=== PATIENT | male | born 1975 | race Caucasian/White ===

== ENCOUNTER 2017-12-16 20:40 | Inpatient (IN) | payer OTHER ==
[2017-12-16] MEDS ORDERED: ONDANSETRON HCL INJ/PF 4 MG/2 ML SDV IV ONE (21:27)
[2017-12-16] MEDS ORDERED: KETOROLAC TROMETHAMINE INJ/PF 30 MG/1 ML SDV IV ONE (21:27)
[2017-12-16] MEDS ORDERED: RINGERS SOLUTION,LACTATED 2,000 ML IV ONE (21:27)
[2017-12-16] MEDS ORDERED: CEFEPIME 2 GM/D5W RTU 2 GM/50 ML RTUPB IV ONE (21:29)
[2017-12-16] MEDS ORDERED: VANCOMYCIN HCL INJ 1000 MG VIAL IV ONE (21:30)
[2017-12-16] MEDS ORDERED: ACETAMINOPHEN 325 MG TABLET PO ONE (21:30)
--- NOTE | 2017-12-16 21:30 | ER Document Report ---
ED General - General Chief Complaint: Shortness Of Breath Stated Complaint: PAIN ALL OVER Time Seen by Provider: 12/16/17 20:59 Cannot obtain history due to: Unstable vital signs Notes: Patient is a 42-year-old male without chronic medical problems although does have a history of both benzodiazepine and opiate dependence who presents from [place] with concerns of fever, vomiting, diarrhea, hypoxia. The patient has apparently been ill for the past 2 days and states that his symptoms have been getting progressively worse. He describes diffuse body pain as a dull, throbbing, aching pain throughout. Nothing improves or worsens his symptoms. 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 He has been on Librium as he had previously been Xanax dependent and denies having any significant benzodiazepine withdrawal symptoms. He does report a cough with production of sputum. Notes that he has a persistent shortness of breath which is worsened by any attempt exertion. Nothing has improved his symptoms. He denies any history of similar symptoms in the past. History is otherwise limited secondary to the acute nature of this patient's presentation. TRAVEL OUTSIDE OF THE [place] IN LAST 30 DAYS: No - Related Data Allergies/Adverse Reactions: rubella and mumps live virus vaccin [Rubella And Mumps Vaccine] Allergy (Unknown , Verified 04/07/11 02:02) tramadol [Tramadol] Allergy (Unknown, Verified 04/07/11 02:01) Past Medical History - General Information source: Patient - Social History Smoking Status: Current Every Day Smoker Frequency of alcohol use: Heavy Drug Abuse: Marijuana, Other Lives with: Other - Half-Way Family History: Reviewed & Not Pertinent Patient has suicidal ideation: No Patient has homicidal ideation: No Renal/ Medical History: Denies: Hx Peritoneal Dialysis Past Surgical History: Reports: Hx Orthopedic Surgery - two wrist surgeries - Immunizations Hx Diphtheria, Pertussis, Tetanus Vaccination: Yes - 6-7yrs ago Review of Systems - Review of Systems Notes: Constitutional: Positive for fever. HENT: Negative for sore throat. Eyes: Negative for visual changes. Cardiovascular: Negative for chest pain. Respiratory: Positive for shortness of breath. Gastrointestinal: Negative for abdominal pain, positive for vomiting and diarrhea Genitourinary: Negative for dysuria. Musculoskeletal: Positive for diffuse pain Skin: Negative for rash. Neurological: Negative for headaches, weakness or numbness. 10 point ROS negative except as marked above and in HPI. Physical Exam - Vital signs Vitals: Temp Pulse Resp BP Pulse Ox 102.4 F H 140 H 22 H 110/70 92 12/16/17 20:46 12/16/17 20:46 12/16/17 20:46 12/16/17 20:46 12/16/17 20:46 Interpretation: Tachycardic, Hypoxic, Tachypneic, Febrile Notes: PHYSICAL EXAMINATION: GENERAL: Ill in appearance, hyperventilating, appears quite uncomfortable HEAD: Atraumatic, normocephalic. EYES: Pupils equal round and reactive to light, extraocular movements intact, sclera anicteric, conjunctiva are normal. ENT: nares patent, oropharynx clear without exudates. Extremely dry mucous membranes. NECK: Normal range of motion, supple without lymphadenopathy LUNGS: Substantially diminished breath sounds at the right base and right middle lobe. Moderate tachypnea without respiratory distress. HEART: Regular tachycardia without murmurs ABDOMEN: Soft, nontender, normoactive bowel sounds. No guarding, no rebound. No masses appreciated. EXTREMITIES: Normal range of motion, no pitting or edema. No cyanosis. NEUROLOGICAL: No focal neurological deficits. Moves all extremities spontaneously and on command. PSYCH: Moderately anxious SKIN: Warm, Dry, normal turgor, scabbed lesions over the bilateral forearms and bilateral lower extremities Course - Re-evaluation Re-evalutation: 12/16/17 21:28 Patient presents with fever, nausea, vomiting, diarrhea, shortness of breath, diffuse body aches. He is a known IV drug user. The patient is ill in appearance at time of my assessment, moderately tachypneic breathing approximately 26 times per minute, saturating 92% on room air and febrile at 102.4F. He is tachycardic with heart rate of 140. He does meet sepsis criteria. Immediately upon evaluation of this patient a full sepsis protocol was initiated. I am extremely concerned that the patient could have possible acute endocarditis as he has had multiple pustular lesions throughout his bilateral upper lower extremities, appears to clinically have a probable pneumonia, concerning for multiple sources of infection with a history of recurrent IV drug use. Will obtain 3 blood cultures, order an echocardiogram, chest x-ray, and reassess patient at regular intervals. He is in guarded condition at this time will require frequent and regular reassessments. 12/16/17 22:11 Chest x-ray shows an extensive infiltrate to the right lower and middle lobes with possible associated pleural effusion as well as possibly cavitary lesions to the left lower lobe. Broad-spectrum antibiotics have been initiated including cefepime, vancomycin, azithromycin. IV fluids have been initiated. Awaiting lab work and then will reassess the patient will continue to reassess at regular intervals. He continues to be ill in appearance but alert and oriented. 12/17/17 00:52 Patient has had significant improvement in his tachycardia, current heart rate is 86, blood pressure remains within acceptable limits. Map is 70. Saturating 94% on 2 L by nasal cannula. Awaiting CT of the chest. Will continue to reassess at regular intervals. 12/17/17 02:31 Patient continues to appear clinically much improved, vitals have likewise normalized. His lactate has down trended. I discussed with Dr. Aponte who is excepted the patient for admission. I have updated the patient on his care plan. 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 - Vital Signs Vital signs: Temp Pulse Resp BP Pulse Ox 97.2 F 140 H 20 111/80 92 12/17/17 02:55 12/16/17 20:46 12/17/17 03:01 12/17/17 03:01 12/17/17 03:01 - Laboratory Result Diagrams: 12/16/17 22:20 12/16/17 22:20 Laboratory results interpreted by me: 12/16/17 12/16/17 12/16/17 22:20 22:20 22:20 WBC 26.7 H Hgb 12.2 L Hct 36.0 L RDW 15.0 H Seg Neuts % (Manual) 94 H Lymphocytes % (Manual) 1 L Monocytes % (Manual) 2 L Abs Neuts (Manual) 25.9 H Abs Lymphs (Manual) 0.3 L VBG pH 7.53 H VBG pCO2 29.3 L Sodium 127.2 L Potassium 3.5 L Chloride 95 L BUN 37 H Glucose 113 H Calcium 7.1 L Direct Bilirubin 0.9 H AST 217 H ALT 80 H Alkaline Phosphatase 199 H NT-Pro-B Natriuret Pep Albumin 2.6 L Urine Protein Urine Blood Urine Urobilinogen 12/16/17 12/16/17 22:20 23:30 WBC Hgb Hct RDW Seg Neuts % (Manual) Lymphocytes % (Manual) Monocytes % (Manual) Abs Neuts (Manual) Abs Lymphs (Manual) VBG pH VBG pCO2 Sodium Potassium Chloride BUN Glucose Calcium Direct Bilirubin AST ALT Alkaline Phosphatase NT-Pro-B Natriuret Pep 273 H Albumin Urine Protein 30 H Urine Blood MODERATE H Urine Urobilinogen 2.0 H - Diagnostic Test Radiology reviewed: Image reviewed, Reports reviewed Radiology results interpreted by me: 12/17/17 02:32 Chest x-ray: Bilateral cavitary lesions, impressive right middle and lower lobe pneumonia Critical Care Note - Critical Care Note Total time excluding time spent on procedures (mins): 38 Comments: Critical care time spent obtaining history from patient or surrogate, discussions with consultants, development of treatment plan with patient or surrogate, evaluation of patient's response to treatment, examination of patient , ordering and performing treatments and interventions, ordering and review of laboratory studies, re-evaluation of patient's condition, ordering and review of radiographic studies and review of old charts Discharge - Discharge Clinical Impression: Cavitary lesion of lung, Opiate withdrawal Pneumonia Qualifiers: Pneumonia type: due to unspecified organism Laterality: right Lung location: lower lobe of lung Qualified Code(s): J18.1 - Lobar pneumonia, unspecified organism Sepsis Qualifiers: Sepsis type: sepsis due to unspecified organism Qualified Code(s): A41.9 - Sepsis, unspecified organism Benzodiazepine withdrawal Qualifiers: Complication of substance-induced condition: uncomplicated Qualified Code(s): F13.230 - Sedative, hypnotic or anxiolytic dependence with withdrawal, uncomplicated Condition: Fair Disposition: ADMITTED INPATIENT Admitting Provider: Hospitalist Unit Admitted: IMCU
--- NOTE | 2017-12-16 21:52 | RADIOLOGY REPORT (SQ) ---
EXAM DESCRIPTION: CHEST SINGLE VIEW COMPLETED DATE/TIME: 12/16/2017 9:43 pm REASON FOR STUDY: sob COMPARISON: None. EXAM PARAMETERS: NUMBER OF VIEWS: One view. TECHNIQUE: Single frontal radiographic view of the chest acquired. RADIATION DOSE: NA LIMITATIONS: None. FINDINGS: LUNGS AND PLEURA: Large right pleural effusion. Extensive opacity at the right base. At least 1 cavitary lesion in the left lung. Other somewhat nodular lesions on the left. Small left ef fusion. MEDIASTINUM AND HILAR STRUCTURES: No masses. Contour normal. HEART AND VASCULAR STRUCTURES: Heart normal in size. Normal vasculature. BONES: No acute findings. HARDWARE: None in the chest. OTHER: No other significant finding. IMPRESSION: Extensive right-sided pneumonia and right pleural effusion. Cavitary lesion in the left chest with additional nodular lesions. . Differential includes metastatic lesions and septic emboli. Extensive pneumonia on the right. TECHNICAL DOCUMENTATION: JOB ID: [id number] [employer]- All Rights Reserved Reading location - IP/workstation name: [email or web address]
[2017-12-16] MEDS ORDERED: AZITHROMYCIN 250 MG TABLET PO ONE (22:10)
[2017-12-16 22:26] LABS: VENOUS BLOOD BASE EXCESS 1.8 mmol/L; VENOUS BLOOD HCO3 23.7 mmol/L (20-32); VENOUS BLOOD PCO2 29.3 mmHg (35-63); VENOUS BLOOD PH 7.53 (7.30-7.42)
[2017-12-16 22:33] LABS: HEMOGLOBIN 12.2 g/dL (13.5-17.0); MEAN CORPUSCULAR VOLUME 82 fl (80-97); PLATELET COUNT 211 10^3/uL (150-450); RED BLOOD COUNT 4.37 10^6/uL (4.35-5.55); WHITE BLOOD COUNT 26.7 10^3/uL (4.0-10.5)
[2017-12-16 22:48] LABS: ALANINE AMINOTRANSFERASE 80 U/L (21-72); ALBUMIN 2.6 g/dL (3.5-5.0); ALKALINE PHOSPHATASE 199 U/L (38-126); ANION GAP 9 (5-19); ASPARTATE AMINO TRANSFERASE 217 U/L (17-59); BILIRUBIN,DIRECT 0.9 mg/dL (0.0-0.4); BILIRUBIN,TOTAL 1.3 mg/dL (0.2-1.3); BLOOD UREA NITROGEN 37 mg/dL (7-20); CALCIUM 7.1 mg/dL (8.4-10.2); CARBON DIOXIDE 23 mmol/L (22-30); CHLORIDE 95 mmol/L (98-107); GLUCOSE 113 mg/dL (75-110); POTASSIUM 3.5 mmol/L (3.6-5.0); SODIUM 127.2 mmol/L (137-145); TOTAL PROTEIN 6.7 g/dL (6.3-8.2)
[2017-12-16 22:58] LABS: ABSOLUTE LYMPHOCYTES# (MANUAL) 0.3 10^3/uL (0.5-4.7); ABSOLUTE MONOCYTES # (MANUAL) 0.5 10^3/uL (0.1-1.4); ABSOLUTE NEUTROPHILS# (MANUAL) 25.9 10^3/uL (1.7-8.2); BAND NEUTROPHILS % (MANUAL) 3 % (3-5); BASOPHILS % (MANUAL) 0 % (0-2); EOSINOPHILS % (MANUAL) 0 % (0-6); LYMPHOCYTES % (MANUAL) 1 % (13-45); MONOCYTES % (MANUAL) 2 % (3-13); SEGMENTED NEUTROPHILS % (MAN) 94 % (42-78); TOTAL CELLS COUNTED 100
[2017-12-16 23:01] LABS: PLATELET CLUMPS PRESENT; PLATELET COMMENT ADEQUATE; PLATELET GIANT PRESENT; PLATELET LARGE PRESENT
[2017-12-16 23:02] LABS: TOXIC GRANULATION 2+; TOXIC VACUOLATION PRESENT
[2017-12-16 23:04] LABS: ANISOCYTOSIS SLIGHT; HYPOCHROMASIA SLIGHT
[2017-12-16 23:33] LABS: NT PRO BNP 273 pg/mL (<125)
[2017-12-16 23:36] LABS: TROPONIN I < 0.012 ng/mL
[2017-12-16 23:54] LABS: APPEARANCE,URINE CLOUDY; BILIRUBIN,URINE NEGATIVE (NEGATIVE); COLOR,URINE YELLOW; GLUCOSE, URINE NEGATIVE (NEGATIVE); KETONES,URINE NEGATIVE (NEGATIVE); LEUKOCYTE ESTERASE,URINE NEGATIVE (NEGATIVE); NITRITE,URINE NEGATIVE (NEGATIVE); PROTEIN,URINE 30 mg/dL (NEGATIVE); URINE SPECIFIC GRAVITY 1.014
[2017-12-17] MEDS: MORPHINE SULFATE 10 MG/ML INJ IV PRN ×2 (00:33→02:30)
[2017-12-17] MEDS ORDERED: RINGERS SOLUTION,LACTATED 1,000 ML IV ONE (00:51)
--- NOTE | 2017-12-17 02:03 | RADIOLOGY REPORT (SQ) ---
EXAM DESCRIPTION: CT CHEST WITH IV CONTRAST COMPLETED DATE/TME: 12/16/2017 22:55 CLINICAL HISTORY: 42 years Male, cxr Comparison: CR, same day. Technique: IV contrast. Coronal and sagittal reformat. This exam was performed according to our departmental dose-optimization program, which includes automated exposure control, adjustment of the mA and/or kV according to patient size and/or use of iterative reconstruction technique. [facility]: Dose Right [facility]: CareDose [facility]: Dose Right [facility]: Teradose 4D [facility]: ScanSocial LIMITATIONS: None Findings: Moderate consolidative opacity of the right lower lobe, 3.1 cm cavitary lesion of the left upper lobe, 1.4 cm cavitary lesion of the superior segment of the left lower lobe, multiple scattered pulmonary nodules, left more than right, moderate right pleural effusion. Cervicothoracic hardware effusion. Moderate coronary arterial calcification. Small pericardial fluid. Inferior neck, axillae, mediastinum, airway, lymphatics, heart, vasculature, upper abdomen, and musculoskeleton appear otherwise unremarkable. Impression: Bilateral lung lesions include consolidate, cavitary lesions, and pulmonary nodules. Differential etiologies include infectious, inflammatory, and neoplastic processes including possible metastatic lesions or septic emboli as previously described.
[2017-12-17] MEDS ORDERED: DIAZEPAM 2 MG TABLET PO ONE (02:30)
[2017-12-17] MEDS ORDERED: NORMAL SALINE 1000 ML 1,000 ML IV SCH (02:30)
[2017-12-17] MEDS ORDERED: MAG HYDROX/AL HYDROX/SIMETH SUSP 30 ML UDCUP PO PRN (02:30)
[2017-12-17] MEDS ORDERED: IPRATROPIUM/ALBUTEROL 0.5-2.5 MG/3 ML AMPUL NEB PRN (02:30)
[2017-12-17] MEDS ORDERED: DIAZEPAM 2 MG TABLET PO PRN (02:38)
[2017-12-17] MEDS ORDERED: VANCOMYCIN HCL 0 MG in DEXTROSE 5%-WATER 250 ML IV NR (02:45)
[2017-12-17] MEDS: IPRATROPIUM/ALBUTEROL 0.5-2.5 MG/3 ML AMPUL NEB SCH ×4 (03:07→21:32)
[2017-12-17] MEDS: ACETAMINOPHEN 325 MG TABLET PO PRN (03:30)
[2017-12-17] MEDS ORDERED: METHADONE HCL 10 MG TABLET PO ONE (04:13)
[2017-12-17] MEDS: METHADONE HCL 10 MG TABLET PO SCH ×3 (05:56→22:17)
[2017-12-17] MEDS: HEPARIN SOD (PORCINE) 5,000 UNIT/ML 1 ML SYRINGE SUBCUT SCH (05:57)
--- NOTE | 2017-12-17 06:16 | PDOC H&P ---
History of Present Illness Admission Date/PCP: 12/17/17 03:16 Patient complains of: Shortness of breath History of Present Illness: DANIELA BURNETT is a 42 year old male presenting in the custody of [facility], with history of hepatitis C, IV drug use, methadone clinic patient. Patient complains of shortness of breath 72 hours, nonproductive cough, developing nausea vomiting and diarrhea. He is brought to the emergency room and found to have hypoxia, leukocytosis and large right-sided infiltrate. He started on vancomycin, Zosyn and referred to the hospitalist for admission. He denies previous pneumonia or endocarditis but has developed disseminated rash over the last 10 days. Past Medical History Cardiac Medical History: Reports: None Pulmonary Medical History: Reports: Bronchitis EENT Medical History: Reports: None Neurological Medical History: Reports: None Endocrine Medical History: Reports: None Renal/ Medical History: Reports: None Malignancy Medical History: Reports: None GI Medical History: Reports: Hepatitis Musculoskeltal Medical History: Reports: None Skin Medical History: Reports: None Psychiatric Medical History: Reports: Substance Abuse, Tobacco Dependency Traumatic Medical History: Reports: None Hematology: Reports: None Infectious Medical History: Reports: Hepatitis C Past Surgical History Past Surgical History: Reports: Orthopedic Surgery - two wrist surgeries Social History Information Source: Patient Lives with: Other - Long-Term Smoking Status: Current Every Day Smoker Frequency of Alcohol Use: Social Drugs: Heroin - Advance Directive Resuscitation Status: Full Code Family History Family History: COPD Parental Family History Reviewed: Yes Children Family History Reviewed: Yes Sibling(s) Family History Reviewed.: Yes Medication/Allergy Home Medications: Acetaminophen [Tylenol] 975 mg PO BID 12/16/17 Chlordiazepoxide HCl [Librium 25 mg Capsule] 2 cap PO BID 12/16/17 Allergies/Adverse Reactions: rubella and mumps live virus vaccin [Rubella And Mumps Vaccine] Allergy (Unknown , Verified 04/07/11 02:02) tramadol [Tramadol] Allergy (Unknown, Verified 04/07/11 02:01) Review of Systems Constitutional: PRESENT: as per HPI, anorexia, chills, fatigue, fever(s), night sweats. ABSENT: headache(s), weight gain, weight loss Eyes: PRESENT: as per HPI. ABSENT: visual disturbances Ears: PRESENT: as per HPI. ABSENT: hearing changes Nose, Mouth, and Throat: PRESENT: as per HPI Cardiovascular: PRESENT: as per HPI, dyspnea on exertion, palpitations. ABSENT : edema, orthropnea Respiratory: PRESENT: as per HPI, cough, dyspnea. ABSENT: hemoptysis Gastrointestinal: ABSENT: abdominal pain, constipation, diarrhea, hematemesis, hematochezia, nausea, vomiting Genitourinary: ABSENT: dysuria, hematuria Musculoskeletal: ABSENT: joint swelling Integumentary: PRESENT: as per HPI, lesions. ABSENT: rash, wounds Neurological: ABSENT: abnormal gait, abnormal speech, confusion, dizziness, focal weakness, syncope Psychiatric: ABSENT: anxiety, depression, homidical ideation, suicidal ideation Endocrine: ABSENT: cold intolerance, heat intolerance, polydipsia, polyuria Hematologic/Lymphatic: ABSENT: easy bleeding, easy bruising Physical Exam Vital Signs: Temp Pulse Resp BP Pulse Ox 97.2 F 140 H 22 H 114/77 92 12/17/17 02:55 12/16/17 20:46 12/17/17 04:02 12/17/17 05:01 12/17/17 05:01 Intake & Output 12/15/17 12/16/17 12/17/17 11:59 11:59 11:59 Intake Total 1240 Output Total 500 Balance 740 Weight 68.039 kg General appearance: PRESENT: cooperative, mild distress, well-developed, well- nourished. ABSENT: disheveled, hard of hearing Head exam: PRESENT: atraumatic, normocephalic Eye exam: PRESENT: conjunctiva pink, EOMI, PERRLA. ABSENT: scleral icterus Ear exam: PRESENT: normal external ear exam Mouth exam: PRESENT: dry mucosa, tongue midline Neck exam: ABSENT: carotid bruit, JVD, lymphadenopathy, thyromegaly Respiratory exam: PRESENT: accessory muscle use, crackles, rales, rhonchi. ABSENT: wheezes Cardiovascular exam: PRESENT: RRR, systolic murmur, tachycardia. ABSENT: diastolic murmur, rubs Pulses: PRESENT: normal dorsalis pedis pul Vascular exam: PRESENT: normal capillary refill GI/Abdominal exam: PRESENT: normal bowel sounds, soft. ABSENT: distended, guarding, mass, organolmegaly, rebound, tenderness Rectal exam: PRESENT: deferred Extremities exam: PRESENT: full ROM. ABSENT: calf tenderness, clubbing, pedal edema Neurological exam: PRESENT: alert, awake, oriented to person, oriented to place , oriented to time, oriented to situation, CN II-XII grossly intact. ABSENT: motor sensory deficit Psychiatric exam: PRESENT: appropriate affect, normal mood. ABSENT: homicidal ideation, suicidal ideation Skin exam: PRESENT: dry, intact, warm, other - Diffuse, disseminated rash. ABSENT: cyanosis, rash, urticaria, vesicles Results Impressions: Chest X-Ray 12/16/17 21:20 IMPRESSION: Extensive right-sided pneumonia and right pleural effusion. Cavitary lesion in the left chest with additional nodular lesions. . Differential includes metastatic lesions and septic emboli. Extensive pneumonia on the right. Assessment & Plan - Diagnosis (1) Pneumonia Qualifiers: Pneumonia type: due to unspecified organism Laterality: right Lung location: lower lobe of lung Qualified Code(s): J18.1 - Lobar pneumonia, unspecified organism Is this a current diagnosis for this admission?: Yes Plan: Pneumonia care set, TB precautions, follow-up CBC AFB and blood culture (2) Hepatitis C Is this a current diagnosis for this admission?: Yes Plan: With elevated LFTs, follow-up quantitative H CV, GI consult (3) Benzodiazepine withdrawal Qualifiers: Complication of substance-induced condition: uncomplicated Qualified Code(s ): F13.230 - Sedative, hypnotic or anxiolytic dependence with withdrawal, uncomplicated Is this a current diagnosis for this admission?: Yes Plan: Valium as needed (4) Cavitary lesion of lung Is this a current diagnosis for this admission?: Yes Plan: TB precautions, follow-up if the (5) Opiate withdrawal Is this a current diagnosis for this admission?: Yes Plan: Methadone 120 mg as outpatient. Will trial 20 every 8 hours (6) Sepsis Qualifiers: Sepsis type: sepsis due to unspecified organism Qualified Code(s): A41.9 - Sepsis, unspecified organism Is this a current diagnosis for this admission?: Yes Plan: Secondary to #1, IV fluid challenge and supportive care
[2017-12-17] MEDS ORDERED: CEFEPIME 1 GM/D5W RTU 1 GM/50 ML RTUPB IV SCH (10:00)
[2017-12-17] MEDS: VANCOMYCIN HCL 750 MG in DEXTROSE 5%-WATER 250 ML IV SCH ×2 (10:36→22:17)
[2017-12-17] MEDS: DOCUSATE SODIUM 100 MG CAPSULE PO SCH ×2 (10:43→17:40)
[2017-12-17] MEDS: CEFEPIME 1 GM/D5W RTU 1 GM/50 ML RTUPB IV SCH ×2 (11:59→22:25)
[2017-12-17 15:30] LABS: INTERNATIONAL RATION (INR) 1.04; PROTHROMBIN TIME 14.2 SEC (11.4-15.4)
[2017-12-17 15:42] LABS: ALANINE AMINOTRANSFERASE 76 U/L (21-72); ALBUMIN 2.2 g/dL (3.5-5.0); ALKALINE PHOSPHATASE 147 U/L (38-126); ANION GAP 11 (5-19); ASPARTATE AMINO TRANSFERASE 132 U/L (17-59); BILIRUBIN,DIRECT 0.7 mg/dL (0.0-0.4); BILIRUBIN,TOTAL 0.9 mg/dL (0.2-1.3); BLOOD UREA NITROGEN 32 mg/dL (7-20); CALCIUM 7.1 mg/dL (8.4-10.2); CARBON DIOXIDE 22 mmol/L (22-30); CHLORIDE 98 mmol/L (98-107); GLUCOSE 87 mg/dL (75-110); POTASSIUM 3.8 mmol/L (3.6-5.0); TOTAL PROTEIN 5.9 g/dL (6.3-8.2)
--- NOTE | 2017-12-17 15:57 | Progress Note ---
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 His chest x-ray shows extensive left lung consolidation with moderate pleural effusion. Accept this patient and I will be his primary attending.
[2017-12-17 16:21] LABS: HEMATOCRIT 35.5 % (37.9-51.0); HEMOGLOBIN 11.9 g/dL (13.5-17.0); MEAN CORPUSCULAR HEMOGLOBIN 27.6 pg (27.0-33.4); MEAN CORPUSCULAR HGB CONC 33.4 g/dL (32.0-36.0); MEAN CORPUSCULAR VOLUME 83 fl (80-97); PLATELET COUNT 164 10^3/uL (150-450); RED CELL DISTRIBUTION WIDTH 15.2 % (11.5-14.0); WHITE BLOOD COUNT 19.6 10^3/uL (4.0-10.5)
[2017-12-17 16:53] LABS: ARTERIAL BLOOD BASE EXCESS 0.5 mmol/L; ARTERIAL BLOOD H2CO3 0.91 mmol/L (1.05-1.35); ARTERIAL BLOOD HCO3 22.8 mmol/L (20-26); ARTERIAL BLOOD O2 SATURATION 88.7 % (94-98); ARTERIAL BLOOD PCO2 30.1 mmHg (35-45); ARTERIAL BLOOD PO2 49.5 mmHg (80-100); ARTERIAL BLOOD TOTAL CO2 23.8 mmol/L (23-27)
[2017-12-17 16:54] LABS: ABSOLUTE LYMPHOCYTES# (MANUAL) 1.4 10^3/uL (0.5-4.7); ABSOLUTE MONOCYTES # (MANUAL) 0.2 10^3/uL (0.1-1.4); BASOPHILS % (MANUAL) 0 % (0-2); EOSINOPHILS % (MANUAL) 0 % (0-6); LYMPHOCYTES % (MANUAL) 7 % (13-45); MONOCYTES % (MANUAL) 1 % (3-13); SEGMENTED NEUTROPHILS % (MAN) 92 % (42-78); TOTAL CELLS COUNTED 100
[2017-12-17 16:55] LABS: ARTERIAL BLOOD FIO2 3L
[2017-12-17 16:55] LABS: ANISOCYTOSIS SLIGHT; HYPOCHROMASIA SLIGHT; PLATELET CLUMPS PRESENT; PLATELET COMMENT ADEQUATE; TOXIC GRANULATION 1+
--- NOTE | 2017-12-17 17:48 | RADIOLOGY REPORT (SQ) ---
EXAM DESCRIPTION: U/S THORACENTESIS WITH IMAGING COMPLETED DATE/TIME: 12/17/2017 5:36 pm REASON FOR STUDY: Moderate Rt pleural effusion COMPARISON: CT chest at dated 12/17/2017. LIMITATIONS: None. PROCEDURE: Procedure, risks, benefit, and alternative explained to patient who then gave written con sent. The posterior right chest wall was marked using ultrasound guidance. A time-out was called fo r correct marking verification. Chest prepped and draped using sterile technique. Local anesthesia a chieved using 8 ml of 1% lidocaine injection. A 6fr Safe-T- Centesis set was introduced into the rig ht pleural space. Fluid was aspirated. The catheter was removed and the entry site was covered with sterile bandage. No immediate complications noted. Images acquired during the procedure were stored on PACS. FINDINGS: ENTRY SITE: posterior right chest. FLUID VOLUME: 500 mL FLUID ANALYSIS: Tierra color OTHER: Fluid sent to the lab for testing. IMPRESSION: SUCCESSFUL THORACENTESIS USING ULTRASOUND GUIDANCE. COMMENT: Patient medication list reviewed: Yes- Quality ID# [id number]:Eligible professional attests to doc umenting in the medical record they obtained, updated, or reviewed the patient's current medications. TECHNICAL DOCUMENTATION: JOB ID: [id number] [employer]- All Rights Reserved Reading location - IP/workstation name: [email or web address]
--- NOTE | 2017-12-17 18:50 | RADIOLOGY REPORT (SQ) ---
EXAM DESCRIPTION: CHEST SINGLE VIEW COMPLETED DATE/TIME: 12/17/2017 6:38 pm REASON FOR STUDY: RIGHT THORACENTESIS IMMEDIATE FILM COMPARISON: CT 12/17/2017 and radiograph 12/16/2017 EXAM PARAMETERS: NUMBER OF VIEWS: One view. TECHNIQUE: Single frontal radiographic view of the chest acquired. RADIATION DOSE: NA LIMITATIONS: None. FINDINGS: LUNGS AND PLEURA: Re- demonstration of a loculated right-sided pleural effusion. No pneum othorax. Short interval stability of multiple lung masses. MEDIASTINUM AND HILAR STRUCTURES: No masses. Contour normal. HEART AND VASCULAR STRUCTURES: Heart normal in size. Normal vasculature. BONES: No acute findings. HARDWARE: None in the chest. OTHER: No other significant finding. IMPRESSION: Stable radiographic appearance of the chest, again demonstrating a large loculated pleur al effusion on the right. TECHNICAL DOCUMENTATION: JOB ID: [id number] [employer] All Rights Reserved Reading location - IP/workstation name: [email or web address]
[2017-12-17 19:00] LABS: FLUID APPEARANCE HAZY; FLUID COLOR AMBER; FLUID SOURCE LUNG; FLUID TYPE PLEURAL; FLUID VISCOSITY LIQUID
--- NOTE | 2017-12-17 20:18 | Operative Report ---
Nonrecallable Operative Report DATE OF SURGERY: 12/17/17 PREOPERATIVE DIAGNOSIS: Phlebosclerosis, sepsis POSTOPERATIVE DIAGNOSIS: Same as above OPERATION: 1. Ultrasound-guided central venous puncture. 2. Right internal jugular vein central line placement. SURGEON: JACLYN LOGAN ANESTHESIA: Local TISSUE REMOVED OR ALTERED: None COMPLICATIONS: None apparent ESTIMATED BLOOD LOSS: Minimal PROCEDURE: Drains/implants: Right internal jugular vein central line placement at 14 cm. Procedure in detail: After informed consent was obtained from the patient, he was laid in the Trendelenburg position. The area of the right neck was prepped and draped in a normal sterile fashion. The right internal jugular vein was identified with the ultrasound. It was compressible with normal flow. Next, the right neck was infiltrated with 1% lidocaine. Under direct ultrasonic guidance, the supplied access needle was used to cannulate the right internal jugular vein. The wire was inserted into the vein very easily. The wire was confirmed to be within the lumen of the vein using the ultrasound device. The catheter was then slid over the wire using a modified Seldinger technique. The catheter was aspirated and flushed. The catheter returned dark venous, nonpulsatile blood. The catheter was then sutured to the skin at 14 cm. A dressing was placed, and the procedure was concluded. All sponge, instrument, and needle counts were correct. Condition: Stable.
--- NOTE | 2017-12-17 20:27 | RADIOLOGY REPORT (SQ) ---
EXAM DESCRIPTION: CHEST SINGLE VIEW COMPLETED DATE/TIME: 12/17/2017 8:17 pm REASON FOR STUDY: 2 HOUR FILM THORACENTESIS/CL PLACEMENT COMPARISON: 12/17/2017 EXAM PARAMETERS: NUMBER OF VIEWS: One view. TECHNIQUE: Single frontal radiographic view of the chest acquired. RADIATION DOSE: NA LIMITATIONS: None. FINDINGS: LUNGS AND PLEURA: Short interval stability of the chest demonstrating a loculated right-si ded pleural effusion with multiple parenchymal masses. MEDIASTINUM AND HILAR STRUCTURES: Stable HEART AND VASCULAR STRUCTURES: Stable peer BONES: No acute findings. HARDWARE: Looped right cervical vascular access catheter with the tip projecting cranially. OTHER: No other significant finding. IMPRESSION: 1. Right central vascular access catheter looped with the tip projecting cranially. 2. Stable radiographic appearance of the chest. TECHNICAL DOCUMENTATION: JOB ID: [id number] [employer]- All Rights Reserved Reading location - IP/workstation name: [email or web address]
[2017-12-18] MEDS: IPRATROPIUM/ALBUTEROL 0.5-2.5 MG/3 ML AMPUL NEB SCH ×4 (02:45→20:40)
[2017-12-18] MEDS: METHADONE HCL 10 MG TABLET PO SCH ×3 (05:55→22:13)
--- NOTE | 2017-12-18 06:23 | Progress Note ---
Provider Note Provider Note: Central line curled in the SVC. This may represent central stenosis. Catheter pulled back several centimeters in hopes of straightening it out. Repeat chest x-ray this morning.
[2017-12-18 06:38] LABS: HEMATOCRIT 30.8 % (37.9-51.0); HEMOGLOBIN 10.6 g/dL (13.5-17.0); MEAN CORPUSCULAR HEMOGLOBIN 28.2 pg (27.0-33.4); MEAN CORPUSCULAR HGB CONC 34.4 g/dL (32.0-36.0); MEAN CORPUSCULAR VOLUME 82 fl (80-97); PLATELET COUNT 153 10^3/uL (150-450); RED BLOOD COUNT 3.76 10^6/uL (4.35-5.55); RED CELL DISTRIBUTION WIDTH 15.2 % (11.5-14.0); WHITE BLOOD COUNT 21.1 10^3/uL (4.0-10.5)
[2017-12-18 07:04] LABS: ABSOLUTE LYMPHOCYTES# (MANUAL) 1.9 10^3/uL (0.5-4.7); ABSOLUTE MONOCYTES # (MANUAL) 0.6 10^3/uL (0.1-1.4); ABSOLUTE NEUTROPHILS# (MANUAL) 18.6 10^3/uL (1.7-8.2); BASOPHILS % (MANUAL) 0 % (0-2); EOSINOPHILS % (MANUAL) 0 % (0-6); LYMPHOCYTES % (MANUAL) 9 % (13-45); MONOCYTES % (MANUAL) 3 % (3-13); PLATELET COMMENT ADEQUATE; SEGMENTED NEUTROPHILS % (MAN) 88 % (42-78); TOTAL CELLS COUNTED 100; TOXIC GRANULATION 1+
[2017-12-18 07:40] LABS: ANION GAP 9 (5-19); BLOOD UREA NITROGEN 22 mg/dL (7-20); CALCIUM 7.1 mg/dL (8.4-10.2); CARBON DIOXIDE 24 mmol/L (22-30); CHLORIDE 94 mmol/L (98-107); GLUCOSE 80 mg/dL (75-110); SODIUM 127.4 mmol/L (137-145)
--- NOTE | 2017-12-18 08:38 | RADIOLOGY REPORT (SQ) ---
EXAM DESCRIPTION: CHEST SINGLE VIEW COMPLETED DATE/TIME: 12/18/2017 7:41 am REASON FOR STUDY: repositioning of central line COMPARISON: Multiples, most recent 18 18 EXAM PARAMETERS: NUMBER OF VIEWS: One view. TECHNIQUE: Single frontal radiographic view of the chest acquired. RADIATION DOSE: NA LIMITATIONS: None. FINDINGS: LUNGS AND PLEURA: Unchanged loculated right pleural effusion with associated right airspac e opacities. Unchanged left cavitary opacities. No new airspace opacities. Persistent blunting of the left costophrenic angle. No pneumothorax. MEDIASTINUM AND HILAR STRUCTURES: No masses. Contour normal. HEART AND VASCULAR STRUCTURES: Heart normal in size. Normal vasculature. BONES: No acute findings. HARDWARE: Right central venous catheter again is looped with the tip projecting cranially. Diamond dean visualized cervical spinal fusion hardware. OTHER: No other significant finding. IMPRESSION: 1. Right central venous catheter tip again is looped in projecting cranially. 2. Otherwise, no significant interval change. TECHNICAL DOCUMENTATION: JOB ID: [id number] [employer]- All Rights Reserved Reading location - IP/workstation name: [email or web address]
[2017-12-18] MEDS: CEFEPIME 1 GM/D5W RTU 1 GM/50 ML RTUPB IV SCH ×2 (09:01→22:32)
[2017-12-18] MEDS: VANCOMYCIN HCL 750 MG in DEXTROSE 5%-WATER 250 ML IV SCH ×2 (09:01→22:32)
[2017-12-18] MEDS: DOCUSATE SODIUM 100 MG CAPSULE PO SCH ×2 (09:09→22:13)
[2017-12-18 09:20] LABS: HEPATITIS B CORE AB IGM Negative (Negative)
--- NOTE | 2017-12-18 10:39 | Progress Note ---
Provider Note Provider Note: Chest x-ray reviewed. Catheter still with a kink at the distal aspect. Flushing easily, not aspirating appropriately. Discussed options with patient. Right IJ catheter removed. He has consented for left internal jugular vein central line placement.
--- NOTE | 2017-12-18 10:46 | Operative Report ---
Nonrecallable Operative Report DATE OF SURGERY: 12/18/17 PREOPERATIVE DIAGNOSIS: 1. dysfunctional right internal jugular vein central line catheter. 2. Phlebosclerosis. 3. Sepsis POSTOPERATIVE DIAGNOSIS: Same as above OPERATION: 1. Removal of right internal jugular vein central line. 2. Ultrasound-guided central venous puncture on the left IJ. 3. Left internal jugular vein central line placement. SURGEON: JACLYN LOGAN ANESTHESIA: Local TISSUE REMOVED OR ALTERED: None COMPLICATIONS: Dysfunctional right IJ catheter, requiring removal and replacement. ESTIMATED BLOOD LOSS: Minimal PROCEDURE: Drains/implants: Left internal jugular vein central line at 14 cm. Procedure in detail: After informed consent was obtained, the patient was laid in the Trendelenburg position. The patient was asked to hold his breath and perform a Valsalva. The right internal jugular vein central line catheter was removed swiftly, and pressure was held. Hemostasis was achieved. A dressing was fashioned. Attention was then turned to placement of the left internal jugular vein catheter. Left neck and chest were prepped and draped in a normal sterile fashion. The left internal jugular vein was identified and examined with the ultrasound. The vein was compressible with normal flow. The vein was accessed using the supplied vascular needle. This was done under direct ultrasonic guidance. Dark venous, nonpulsatile blood was returned in the syringe. The wire was inserted into the vein easily. The wire was confirmed to be within the lumen of the vein using the ultrasound device. Catheter was then slid over the wire using a modified Seldinger technique. The catheter was aspirated and flushed 3 without difficulty. The catheter was sutured to the skin, and a dressing was fashioned. The procedure at this time was concluded. Condition fair.
--- NOTE | 2017-12-18 11:47 | RADIOLOGY REPORT (SQ) ---
EXAM DESCRIPTION: CHEST SINGLE VIEW COMPLETED DATE/TIME: 12/18/2017 11:24 am REASON FOR STUDY: new central line COMPARISON: None. EXAM PARAMETERS: NUMBER OF VIEWS: One view. TECHNIQUE: Single frontal radiographic view of the chest acquired. RADIATION DOSE: NA LIMITATIONS: None. FINDINGS: LUNGS AND PLEURA: Unchanged loculated right pleural effusion with associated right lung op acities, given the differences in inspiratory effort between exams. Left cavitary opacities. Left c ostophrenic angle is sharp. No pneumothorax. MEDIASTINUM AND HILAR STRUCTURES: No masses. Contour normal. HEART AND VASCULAR STRUCTURES: Heart size is unchanged. Central pulmonary vasculature and pulmonary interstitial markings appear prominent. BONES: No acute findings. HARDWARE: Interval removal of the right-sided central venous catheter. Interval placement of a left- sided central venous catheter with the distal tip terminating in the expected region of the left brac hiocephalic vein. Incompletely visualized fusion hardware the cervical spine appear OTHER: No other significant finding. IMPRESSION: 1. Interval removal of the right-sided central venous catheter. Interval placement of a left-sided c entral venous catheter with the distal tip terminating in the expected region of the left brachioceph alic vein. 2. Interval development of pulmonary vascular congestion. 3. Otherwise, no significant interval change. TECHNICAL DOCUMENTATION: JOB ID: [id number] [employer]- All Rights Reserved Reading location - IP/workstation name: [email or web address]
--- NOTE | 2017-12-18 12:02 | PDOC PROGRESS REPORT ---
Subjective Subjective:: This is a 42 years old male intimate brought from correction with 3 days history of shortness of breath, cough, nausea vomiting and diarrhea. His initial blood work shows markedly leukocytosis and elevated liver enzymes. He CT scan of the chest shows right lung extensive consolidation with pleural effusion and left side pulmonary nodules and cavitary lesions. Impression of bilateral pneumonia and query tuberculosis patient admitted and put on isolation and droplet precaution. Currently patient has been getting vancomycin and cefepime. Since patient has history of IV drug abuse, transthoracic echo ordered. For his right-sided pleural effusion patient undergo ultrasound-guided thoracentesis and about 500 mL of avni colored fluid removed. First set of sputum stain for AFB is negative. Reason For Visit: ENDOCARDITIS, PNA HYPONATREMIA Physical Exam Vital Signs: Temp Pulse Resp BP Pulse Ox 98.2 F 104 H 12 99/64 L 94 12/18/17 08:14 12/18/17 08:14 12/18/17 08:14 12/18/17 08:14 12/18/17 08:14 Intake & Output 12/17/17 12/18/17 12/19/17 06:59 06:59 06:59 Intake Total 1240 3055 Output Total 500 3825 Balance 740 -770 Weight 68.039 kg 71 kg General appearance: PRESENT: mild distress Head exam: PRESENT: atraumatic Eye exam: PRESENT: conjunctiva pink Mouth exam: PRESENT: moist Respiratory exam: PRESENT: clear to auscultation miguel. ABSENT: rales, rhonchi, wheezes GI/Abdominal exam: PRESENT: normal bowel sounds, soft. ABSENT: distended, guarding, mass, organolmegaly, rebound, tenderness Extremities exam: PRESENT: full ROM. ABSENT: calf tenderness, clubbing, pedal edema Neurological exam: PRESENT: alert, awake, oriented to time, oriented to situation Skin exam: PRESENT: other - Scaly macular lesions over the left forearm. Suspicious for psoriasis Results Laboratory Results: 12/18/17 06:00 12/18/17 06:00 12/17/17 12/17/17 12/17/17 15:08 15:08 15:08 WBC Cancelled RBC Cancelled Hgb Cancelled Hct Cancelled MCV Cancelled MCH Cancelled MCHC Cancelled RDW Cancelled Plt Count Cancelled Seg Neutrophils % Cancelled Lymphocytes % Cancelled Monocytes % Cancelled Eosinophils % Cancelled Basophils % Cancelled Absolute Neutrophils Cancelled Absolute Lymphocytes Cancelled Absolute Monocytes Cancelled Absolute Eosinophils Cancelled Absolute Basophils Cancelled Carbonic Acid HCO3/H2CO3 Ratio ABG pH ABG pCO2 ABG pO2 ABG HCO3 ABG O2 Saturation ABG Base Excess FiO2 Sodium 131.0 L Potassium 3.8 Chloride 98 Carbon Dioxide 22 Anion Gap 11 BUN 32 H Creatinine 0.88 Est GFR ( Amer) > 60 Est GFR (Non-Af Amer) > 60 Glucose 87 Calcium 7.1 L Magnesium 2.5 H Total Bilirubin 0.9 AST 132 H ALT 76 H Alkaline Phosphatase 147 H Total Protein 5.9 L Albumin 2.2 L Fluid Type Fluid Source Fluid Color Fluid Appearance Fluid Viscosity Fluid WBC Fluid RBC 12/17/17 12/17/17 12/17/17 16:14 16:20 17:20 WBC 19.6 H RBC 4.30 L Hgb 11.9 L Hct 35.5 L MCV 83 MCH 27.6 MCHC 33.4 RDW 15.2 H Plt Count 164 Seg Neutrophils % Not Reportable Lymphocytes % Not Reportable Monocytes % Not Reportable Eosinophils % Not Reportable Basophils % Not Reportable Absolute Neutrophils Not Reportable Absolute Lymphocytes Not Reportable Absolute Monocytes Not Reportable Absolute Eosinophils Not Reportable Absolute Basophils Not Reportable Carbonic Acid 0.91 L HCO3/H2CO3 Ratio 25:1 ABG pH 7.50 H ABG pCO2 30.1 L ABG pO2 49.5 L ABG HCO3 22.8 ABG O2 Saturation 88.7 L ABG Base Excess 0.5 FiO2 3L Sodium Potassium Chloride Carbon Dioxide Anion Gap BUN Creatinine Est GFR ( Amer) Est GFR (Non-Af Amer) Glucose Calcium Magnesium Total Bilirubin AST ALT Alkaline Phosphatase Total Protein Albumin Fluid Type PLEURAL Fluid Source LUNG Fluid Color AVNI Fluid Appearance HAZY Fluid Viscosity LIQUID Fluid WBC 467 Fluid RBC 4065 12/18/17 12/18/17 06:00 06:00 WBC 21.1 H RBC 3.76 L Hgb 10.6 L Hct 30.8 L MCV 82 MCH 28.2 MCHC 34.4 RDW 15.2 H Plt Count 153 Seg Neutrophils % Not Reportable Lymphocytes % Not Reportable Monocytes % Not Reportable Eosinophils % Not Reportable Basophils % Not Reportable Absolute Neutrophils Not Reportable Absolute Lymphocytes Not Reportable Absolute Monocytes Not Reportable Absolute Eosinophils Not Reportable Absolute Basophils Not Reportable Carbonic Acid HCO3/H2CO3 Ratio ABG pH ABG pCO2 ABG pO2 ABG HCO3 ABG O2 Saturation ABG Base Excess FiO2 Sodium 127.4 L Potassium 4.0 Chloride 94 L Carbon Dioxide 24 Anion Gap 9 BUN 22 H Creatinine 1.08 Est GFR ( Amer) > 60 Est GFR (Non-Af Amer) > 60 Glucose 80 Calcium 7.1 L Magnesium Total Bilirubin AST ALT Alkaline Phosphatase Total Protein Albumin Fluid Type Fluid Source Fluid Color Fluid Appearance Fluid Viscosity Fluid WBC Fluid RBC 12/17/17 10:40 Sputum Nocardia Susceptibility - Final OBSERVER ELECTRICAL PROSPECTING 12/17/17 10:40 Sputum Nocardia Susceptibility - Final Not Reportable 12/17/17 10:40 Sputum Nocardia Susceptibility - Final Not Reportable 12/17/17 10:40 Sputum Nocardia Susceptibility - Final Not Reportable 12/17/17 10:40 Sputum Nocardia Susceptibility - Final Not Reportable 12/17/17 10:40 Sputum Nocardia Susceptibility - Final Not Reportable 12/17/17 10:40 Sputum Nocardia Susceptibility - Final Not Reportable 12/17/17 10:40 Sputum Nocardia Susceptibility - Final Not Reportable 12/17/17 10:40 Sputum Nocardia Susceptibility - Final Not Reportable 12/17/17 10:40 Sputum Microbiology Comment - Final Not Reportable Impressions: Thoracentesis Ultrasound 12/17/17 00:00 IMPRESSION: SUCCESSFUL THORACENTESIS USING ULTRASOUND GUIDANCE. Chest X-Ray 12/18/17 06:21 IMPRESSION: 1. Right central venous catheter tip again is looped in projecting cranially. 2. Otherwise, no significant interval change. Assessment & Plan - Diagnosis (1) Severe sepsis Is this a current diagnosis for this admission?: Yes Plan: Sepsis as evidenced by fever, leukocytosis, hypotension and source of infection. Continue current regimen (2) Bilateral pneumonia with cavitation Is this a current diagnosis for this admission?: Yes Plan: Continue current regimen (3) Moderate right pleural effusion Is this a current diagnosis for this admission?: Yes Plan: Status post ultrasound-guided paracentesis and about 500 mL of avni colored fluid removed. Fluid analysis results pending (4) Elevated liver chemistry Is this a current diagnosis for this admission?: Yes Plan: Due to hepatitis C (5) Chronic hepatitis C Is this a current diagnosis for this admission?: Yes Plan: Follow-up with his primary care physician (6) History of intravenous drug abuse Is this a current diagnosis for this admission?: Yes Plan: Patient currently is in correction and he is also methadone clinic client.
--- NOTE | 2017-12-18 16:19 | EKG REPORT ---
SEVERITY:- ABNORMAL ECG - SINUS TACHYCARDIA MULTIPLE VENTRICULAR PREMATURE COMPLEXES : Confirmed by: Ralph Meyers MD 18-Dec-2017 16:18:28
[2017-12-18] MEDS ORDERED: LORAZEPAM INJ 2 MG/1 ML VIAL ONE (17:21)
[2017-12-18] MEDS: ACETAMINOPHEN 325 MG TABLET PO PRN (17:27)
--- NOTE | 2017-12-18 17:32 | XCELERA REPORT ---
[address] [address] Transthoracic Echocardiogram Report Name: DANIELA BURNETT Age: 42 yrs Gender: Male : 1975 Patient Status: Inpatient Patient Location: [address] [place] [address] Study Date: 12/18/2017 12:52 PM Procedure: A two-dimensional transthoracic echocardiogram with color flow Doppler was performed. Study Quality: Fair. Reason For Study: eval endocarditis History: ENDOCARDITIS. Ordering Physician: SIMÓN RAMIREZ Performed By: Valarie Bell Interpretation Summary The left ventricle is normal in size. There is normal left ventricular wall thickness. LV EF is 65% Left ventricular systolic function is normal. Doppler measurements suggest normal left ventricular diastolic function The left ventricular wall motion is normal. There is no thrombus. The right ventricle is grossly normal size. The right ventricle is not well visualized secondary to technical limitations The right atrium is normal. The left atrial size is normal. There is no evidence of mitral valve prolapse. There is no vegetation seen on the mitral valve. There is no mitral valve stenosis. There is no mitral regurgitation noted. There is no aortic valve stenosis No aortic regurgitation is present. THERE IS A vVGETATION WITH A 6CM CIRCUMFERENCE SEEN ON THE TRICUSPID VALVE.. There is no tricuspid stenosis. There is a mild to moderate amount of tricuspid regurgitation There is mild pulmonary hypertension by echo RVSP is 41 to 46 mm of Hg , with RA mean of 15 to 20. There is no vegetation on the pulmonic valve. There is no pulmonic valvular regurgitation. The aortic root is normal size. The inferior vena cava appeared dilated and decreased < 50% with respiration (RAP 15-20 mmHg) There is no pericardial effusion. Tricuspid vegetation TR veg TR veg TR veg MMode/2D Measurements & Calculations RVDd: 3.6 cm LVIDd: 4.5 cm FS: 36.3 % Ao root diam: 2.9 cm IVSd: 0.90 cm LVIDs: 2.9 cm EDV(Teich): 94.3 ml Ao root area: 6.5 cm2 LVPWd: 0.88 cm ESV(Teich): 32.0 ml EF(Teich): 66.1 % Doppler Measurements & Calculations MV E max joseph: MV dec slope: Ao V2 max: LV V1 max P.6 cm/sec 189.0 cm/sec 7.2 mmHg MV A max joseph: 463.4 cm/sec2 Ao max PG: LV V1 max: 68.1 cm/sec MV dec time: 0.19 sec14.3 mmHg 134.0 cm/sec MV E/A: 1.3 PA V2 max: TR max joseph: 145.4 cm/sec 253.9 cm/sec PA max P.5 mmHg TR max P.8 mmHg Left Ventricle The left ventricle is normal in size. There is normal left ventricular wall thickness. LV EF is 65%. Left ventricular systolic function is normal. Doppler measurements suggest normal left ventricular diastolic function. The left ventricular wall motion is normal. There is no thrombus. Right Ventricle The right ventricle is grossly normal size. The right ventricle is not well visualized secondary to technical limitations. Atria The right atrium is normal. The left atrial size is normal. Mitral Valve There is no evidence of mitral valve prolapse. There is no vegetation seen on the mitral valve. There is no mitral valve stenosis. There is no mitral regurgitation noted. Aortic Valve The aortic valve is trileaflet. The aortic valve opens well. There is no aortic valvular vegetation. There is no aortic valve stenosis. No aortic regurgitation is present. Tricuspid Valve THERE IS A vVGETATION WITH A 6CM CIRCUMFERENCE SEEN ON THE TRICUSPID VALVE.. There is no tricuspid stenosis. There is a mild to moderate amount of tricuspid regurgitation. There is mild pulmonary hypertension by echo. RVSP is 41 to 46 mm of Hg , with RA mean of 15 to 20. Pulmonic Valve There is no vegetation on the pulmonic valve. There is no pulmonic valvular stenosis. There is no pulmonic valvular regurgitation. Great Vessels The aortic root is normal size. The inferior vena cava appeared dilated and decreased < 50% with respiration (RAP 15-20 mmHg). Effusions There is no pericardial effusion. Tricuspid vegetation TR veg TR veg TR veg : SIMÓN RAMIREZ > Erin Gomez
--- NOTE | 2017-12-18 18:11 | PDOC TRANSFER SUMMARY ---
General Admission Date/PCP: 12/17/17 03:16 Resuscitation Status: Full Code - Transfer Diagnosis (1) Acute bacterial endocarditis Is this a current diagnosis for this admission?: Yes (2) Severe sepsis Is this a current diagnosis for this admission?: Yes (3) Bilateral pneumonia with cavitation Is this a current diagnosis for this admission?: Yes (4) Moderate right pleural effusion Is this a current diagnosis for this admission?: Yes (5) Elevated liver chemistry Is this a current diagnosis for this admission?: Yes (6) Chronic hepatitis C Is this a current diagnosis for this admission?: Yes (7) History of intravenous drug abuse Is this a current diagnosis for this admission?: Yes - Transfer Medications Home Medications: Acetaminophen [Tylenol Extra Strength 500 mg Tablet] 1,000 mg PO BID 12/17/17 Chlordiazepoxide HCl [Librium 10 mg Capsule] 10 mg PO DAILY@89912/17/17 Chlordiazepoxide HCl [Librium 25 mg Capsule] 25 mg PO BID 12/17/17 Chlordiazepoxide HCl [Librium 25 mg Capsule] 25 mg PO DAILY@89912/17/17 Librium 50mg 50 mg PO BID 12/17/17 Loperamide HCl [Imodium 2 mg Capsule] 4 mg PO BID 12/17/17 Transfer Medications: Current Medications Acetaminophen (Tylenol 325 Mg Tablet) 650 mg PO Q4HP PRN PRN Reason: FOR PAIN OR TEMP Stop: 01/16/18 02:29 Last Admin: 12/17/17 03:30 Dose: 650 mg Al Hydrox/Mg Hydrox/Simethicone (Maalox Plus Susp 30 Udcup) 30 ml PO Q6HP PRN PRN Reason: HEARTBURN Stop: 01/16/18 02:29 Last Admin: 12/17/17 07:09 Dose: 30 ml Albuterol/Ipratropium (Duoneb 3 Ml Ampul) 3 ml NEB [id number] PRN PRN Reason: SHORTNESS OF BREATH Stop: 01/16/18 02:29 Albuterol/Ipratropium (Duoneb 3 Ml Ampul) 3 ml NEB RTQ6 MEKHI Stop: 01/16/18 02:29 Last Admin: 12/18/17 13:46 Dose: 3 ml Diazepam (Valium 2 Mg Tablet) 2 mg PO Q6HP PRN PRN Reason: ANXIETY/AGITATION Stop: 12/24/17 02:36 Last Admin: 12/17/17 04:32 Dose: 2 mg Docusate Sodium (Colace 100 Mg Capsule) 100 mg PO BID MEKHI Stop: 01/16/18 09:59 Last Admin: 12/18/17 09:09 Dose: Not Given Heparin Sodium (Porcine) (Heparin Inj 5,000 Units/Ml 1 Ml Syringe) 5,000 unit SUBCUT Q8 MEKHI Stop: 01/16/18 05:59 Last Admin: 12/17/17 05:57 Dose: 5,000 unit Vancomycin HCl 750 mg/ (Dextrose) 250 mls @ 166.667 mls/hr IV Q12 MEKHI Stop: 12/24/17 09:59 Last Infusion: 12/18/17 10:32 Dose: Infused Cefepime HCl (Maxipime Rtu 1 Gm/D5w 50 Ml Premix Bag) 1 gm in 50 mls @ 100 mls/ hr IV Q12 MEKHI Stop: 12/24/17 11:29 Last Infusion: 12/18/17 09:32 Dose: Infused Methadone HCl (Dolophine 10 Mg Tablet) 20 mg PO Q8 MEKHI Stop: 12/24/17 05:59 Last Admin: 12/18/17 14:26 Dose: 20 mg - Allergies Allergies/Adverse Reactions: rubella and mumps live virus vaccin [Rubella And Mumps Vaccine] Allergy (Unknown , Verified 04/07/11 02:02) tramadol [Tramadol] Allergy (Unknown, Verified 04/07/11 02:01) Hospital Course Hospital Course: This is a 42 years old male intimate with past medical history of hepatitis C and IV drug abuse brought by police from snf with 3 days history of shortness of breath, cough, nausea vomiting and diarrhea. His initial blood work shows markedly elevated leukocytosis and elevated liver enzymes. His CT scan of the chest shows right lung extensive consolidation with pleural effusion and left side pulmonary nodules and cavitary lesions. With the impression of bilateral pneumonia, infective endocarditis and query tuberculosis patient admitted and put on isolation and droplet precaution. Currently patient has been getting vancomycin and cefepime for his possible bilateral pneumonia infective endocarditis. Since patient has history of IV drug abuse, patient undergone transthoracic echo which revealed a 6 cm circumference vegetation on tricuspid valve. For his right-sided pleural effusion patient undergo ultrasound-guided thoracentesis and about 500 mL of avni colored fluid removed. 4 sets of blood cultures are positive for gram- positive cocci in cluster and his urine culture also positive for gram-positive cocci in clusters. First set of sputum stain for AFB is negative. With history of IV drug abuse, but could leukocytosis and septic feature pulmonary tuberculosis is unlikely. With the recommendation of Dr. Gomez and patient 's clinical condition patient needs to be transferred to tertiary center to be seen by cardiothoracic surgeon. I contacted [facility] and I discussed the case with Dr. Gaona, cardiothoracic surgeon who is willing to be consulted by hospitalist who is going to admit the patient. Physical Exam Vital Signs: Temp Pulse Resp BP Pulse Ox 98.0 F 117 H 16 108/55 L 93 12/18/17 15:56 12/18/17 15:56 12/18/17 15:56 12/18/17 15:56 12/18/17 15:56 Intake & Output 12/17/17 12/18/17 12/19/17 06:59 06:59 06:59 Intake Total 1240 3055 937 Output Total 500 3825 800 Balance 740 -770 137 Weight 68.039 kg 71 kg General appearance: PRESENT: mild distress Head exam: PRESENT: atraumatic Eye exam: PRESENT: conjunctiva pink Cardiovascular exam: PRESENT: tachycardia GI/Abdominal exam: PRESENT: normal bowel sounds, soft. ABSENT: distended, guarding, mass, organolmegaly, rebound, tenderness Musculoskeletal exam: PRESENT: other - Tender swelling of the right sternoclavicular junction Neurological exam: PRESENT: alert, awake Psychiatric exam: PRESENT: agitated Results Laboratory Results: 12/18/17 06:00 12/18/17 06:00 12/17/17 12/18/17 12/18/17 17:20 06:00 06:00 WBC 21.1 H RBC 3.76 L Hgb 10.6 L Hct 30.8 L MCV 82 MCH 28.2 MCHC 34.4 RDW 15.2 H Plt Count 153 Seg Neutrophils % Not Reportable Lymphocytes % Not Reportable Monocytes % Not Reportable Eosinophils % Not Reportable Basophils % Not Reportable Absolute Neutrophils Not Reportable Absolute Lymphocytes Not Reportable Absolute Monocytes Not Reportable Absolute Eosinophils Not Reportable Absolute Basophils Not Reportable Sodium 127.4 L Potassium 4.0 Chloride 94 L Carbon Dioxide 24 Anion Gap 9 BUN 22 H Creatinine 1.08 Est GFR ( Amer) > 60 Est GFR (Non-Af Amer) > 60 Glucose 80 Calcium 7.1 L Fluid Type PLEURAL Fluid Source LUNG Fluid Color AVNI Fluid Appearance HAZY Fluid Viscosity LIQUID Fluid WBC 467 Fluid RBC 4065 Impressions: Thoracentesis Ultrasound 12/17/17 00:00 IMPRESSION: SUCCESSFUL THORACENTESIS USING ULTRASOUND GUIDANCE. Chest X-Ray 12/18/17 06:21 IMPRESSION: 1. Right central venous catheter tip again is looped in projecting cranially. 2. Otherwise, no significant interval change.
[2017-12-18 18:14] LABS: ARTERIAL BLOOD BASE EXCESS 3.1 mmol/L; ARTERIAL BLOOD H2CO3 1.36 mmol/L (1.05-1.35); ARTERIAL BLOOD HCO3 28.2 mmol/L (20-26); ARTERIAL BLOOD O2 SATURATION 93.6 % (94-98); ARTERIAL BLOOD PCO2 45.3 mmHg (35-45); ARTERIAL BLOOD PH 7.41 (7.35-7.45); ARTERIAL BLOOD PO2 67.8 mmHg (80-100); ARTERIAL BLOOD TOTAL CO2 29.6 mmol/L (23-27)
[2017-12-18 18:15] LABS: ARTERIAL BLOOD FIO2 4L
[2017-12-18 21:05] LABS: ARTERIAL BLOOD BASE EXCESS 1.8 mmol/L; ARTERIAL BLOOD H2CO3 1.64 mmol/L (1.05-1.35); ARTERIAL BLOOD HCO3 28.5 mmol/L (20-26); ARTERIAL BLOOD O2 SATURATION 98.8 % (94-98); ARTERIAL BLOOD PCO2 54.5 mmHg (35-45); ARTERIAL BLOOD PH 7.34 (7.35-7.45); ARTERIAL BLOOD PO2 149.1 mmHg (80-100); ARTERIAL BLOOD TOTAL CO2 30.2 mmol/L (23-27)
[2017-12-18 21:06] LABS: ARTERIAL BLOOD FIO2 50%
[2017-12-18] MEDS: HEPARIN SOD (PORCINE) 5,000 UNIT/ML 1 ML SYRINGE SUBCUT SCH (22:32)
[2017-12-18 22:44] VITALS: BP 116/74
[2017-12-18 22:52] LABS: VANCOMYCIN,TROUGH 7.6 ug/mL (5.0-20.0)
[2017-12-19 10:36] LABS: HEPATITIS C QUANTITATION 14000 IU/mL (.)
== END 2017-12-19 | disposition short-term general hospital (02) | DRG 871 ==
LOC: ER 20:40 → EH 12-17 03:16 → 3S 12-17 09:54 → ICU 12-18 17:44
PROVIDERS: ADMIT Internal Medicine; ATTEND Internal Medicine
PROC: 0W993ZX Drainage of Right Pleural Cavity, Percutaneous Approach, Diagnostic (ICD-10-PCS; 2017-12-17)
PROC: 3E0F73Z Introduction of Anti-inflammatory into Respiratory Tract, Via Natural or Artificial Opening (ICD-10-PCS; 2017-12-17)
PROC: 02HV33Z Insertion of Infusion Device into Superior Vena Cava, Percutaneous Approach (ICD-10-PCS; 2017-12-17)
PROC: B548ZZA Ultrasonography of Superior Vena Cava, Guidance (ICD-10-PCS; 2017-12-17)
PROC: 5A09357 Assistance with Respiratory Ventilation, Less than 24 Consecutive Hours, Continuous Positive Airway Pressure (ICD-10-PCS; principal; 2017-12-18)
PROC: 02PY33Z Removal of Infusion Device from Great Vessel, Percutaneous Approach (ICD-10-PCS; 2017-12-18)
PROC: 02HV33Z Insertion of Infusion Device into Superior Vena Cava, Percutaneous Approach (ICD-10-PCS; 2017-12-18)
PROC: B548ZZA Ultrasonography of Superior Vena Cava, Guidance (ICD-10-PCS; 2017-12-18)
DX: A41.9 Sepsis, unspecified organism (principal); J18.1 Lobar pneumonia, unspecified organism; I33.0 Acute and subacute infective endocarditis; E87.1 Hypo-osmolality and hyponatremia; F13.230 Sedative, hypnotic or anxiolytic dependence with withdrawal, uncomplicated; J91.8 Pleural effusion in other conditions classified elsewhere; R65.20 Severe sepsis without septic shock; R94.5 Abnormal results of liver function studies; B18.2 Chronic viral hepatitis C; F17.210 Nicotine dependence, cigarettes, uncomplicated; R91.1 Solitary pulmonary nodule; I87.8 Other specified disorders of veins; Z78.1 Physical restraint status; Z88.7 Allergy status to serum and vaccine; Z88.8 Allergy status to other drugs, medicaments and biological substances; Z83.6 Family history of other diseases of the respiratory system
CPT/HCPCS: 32555; 36415; 71045; 71260; 80048; 80053; 80202; 81001; 82803; 82945; 82962; 83605; 83615; 83735; 83880; 84157; 84484; 85025; 85610; 86701; 86705; 87015; 87040; 87070; 87075; 87077; 87086; 87088; 87116; 87186; 87205; 87206; 87522; 89050; 93005; 93010; 93306; 94660; 96361; 96365; 96375; 99291; C1751; J0692; J1644; J1885; J2060; J2270; J2405; J3370; J3490; J7060; J7120; J7620